=== PATIENT | female | born 1935 | race Caucasian/White ===

== ENCOUNTER → 2016-03-23 | Outpatient (CLI) | payer OTHER, BC ==
[~2016-03-23] MED LIST: BREO ELLIPTA I1 EACH IH; COMBIVENT RESPIM4 GM IH; COZAAR100 MG PO; FUROSEMIDE40 MG PO; GLIPIZIDE5 MG PO; JANUMET 50/11 TABLET PO; JANUVIA100 MG PO; LIPITOR20 MG PO; MACROBID100 MG PO; NORVASC5 MG PO; PROCHLORPERAZIN10 MG PO; PROCTOSOL-HC28.35 GM PR; PROVENTIL,2.5 MG/3 M IH; SPIRIVA1 INHALATI IH; TYLENOL EXTRA500 MG PO
[2016-03-23 09:51] LABS: POINT-OF-CARE METER ID UU14174212
[2016-03-23 11:37] LABS: POINT-OF-CARE METER ID UU13113819; POINT-OF-CARE USER ID 515036437
== END | disposition home or self-care (01) ==
LOC: OPR 08:44 → EDSTATUS 09:00 → OPR 09:00
PROVIDERS: Internal Medicine
PROC: 0BBJ3ZX Excision of Left Lower Lung Lobe, Percutaneous Approach, Diagnostic (ICD-10-PCS; principal; 2016-03-23)
DX: C34.32 Malignant neoplasm of lower lobe, left bronchus or lung (principal); I10 Essential (primary) hypertension; E78.5 Hyperlipidemia, unspecified; E11.9 Type 2 diabetes mellitus without complications; E66.9 Obesity, unspecified; J45.909 Unspecified asthma, uncomplicated; Z88.8 Allergy status to other drugs, medicaments and biological substances
CPT/HCPCS: 71010; 77012; 82948; 88305; 88341 TC; 88342 TC; J3010